=== PATIENT | female | born 1935 | race Caucasian/White ===

== ENCOUNTER → 2016-07-28 | Outpatient (CLI) | payer MEDICARE ==
[~2016-07-28] MED LIST: AMIO200T42 PO; APIX5TAB PO; CARV-39 PO; DIGO125T PO; FURO-93 PO; HYDR-3343 PO; INSU100V8 SQ; LISI-170 PO; METF10002 PO; POTA20TA89 PO; ROSU20TA PO; SITA100T PO
== END | disposition home or self-care (01) ==
LOC: CFH 13:30
PROVIDERS: ATTEND Internal Medicine Cardiovascular Disease
DX: I50.32 Chronic diastolic (congestive) heart failure (principal); I25.10 Atherosclerotic heart disease of native coronary artery without angina pectoris; I51.7 Cardiomegaly; Z79.899 Other long term (current) drug therapy
CPT/HCPCS: 71020

== ENCOUNTER → 2017-06-19 | Outpatient (CLI) | payer MEDICARE | END | disposition home or self-care (01) | LOC: CFH 16:37 | PROVIDERS: ATTEND Internal Medicine Cardiovascular Disease | DX: S82.292A Other fracture of shaft of left tibia, initial encounter for closed fracture (principal); M17.12 Unilateral primary osteoarthritis, left knee; I51.7 Cardiomegaly; I48.1 Persistent atrial fibrillation; R53.1 Weakness; R60.9 Edema, unspecified; X58.XXXA Exposure to other specified factors, initial encounter; Y93.89 Activity, other specified; Y92.89 Other specified places as the place of occurrence of the external cause; Y99.8 Other external cause status | CPT/HCPCS: 71046 ==

== ENCOUNTER → 2017-08-02 | Outpatient (CLI) | payer MEDICARE | END | disposition home or self-care (01) | LOC: CFH 14:19 | PROVIDERS: ATTEND Internal Medicine Cardiovascular Disease | DX: I08.2 Rheumatic disorders of both aortic and tricuspid valves (principal); I11.0 Hypertensive heart disease with heart failure; I50.32 Chronic diastolic (congestive) heart failure; E11.9 Type 2 diabetes mellitus without complications; Z95.5 Presence of coronary angioplasty implant and graft | CPT/HCPCS: 93306 ==

== ENCOUNTER 2018-01-05 11:29 | Emergency (ER) | payer MEDICARE ==
[~2018-01-05] VITALS: Ht 160 cm; Wt 95.0 kg
[2018-01-05] MEDS ORDERED: METF500T17 PO (11:54)
[2018-01-05] MEDS ORDERED: SPIR1TAB PO (11:54)
[2018-01-05 12:10] LABS: BASOPHILS # (AUTO) 0.07 x10^3/uL (0-0.1); BASOPHILS % (AUTO) 1 % (0-1); EOSINOPHILS # (AUTO) 0.27 x10^3/uL (0-0.4); EOSINOPHILS % (AUTO) 3 % (1-7); LYMPHOCYTES # (AUTO) 2.23 x10^3/uL (1-3.4); LYMPHOCYTES % (AUTO) 28 % (22-44); MD NO; MEAN CORPUSCULAR HEMOGLOBIN 29.9 pg (27.0-34.8); MEAN CORPUSCULAR HGB CONC 33.1 g/dL (32.4-35.8); MEAN CORPUSCULAR VOLUME 90.4 fL (80-100); MEAN PLATELET VOLUME 7.9 fL (7.4-10.4); MONOCYTES # (AUTO) 0.52 x10^3/uL (0.2-0.8); MONOCYTES % (AUTO) 6 % (2-9); NEUTROPHILS # (AUTO) 5.01 x10^3/uL (1.8-6.8); NEUTROPHILS % (AUTO) 62 % (42-75); PLATELET COUNT 310 x10^3/uL (130-400); RED BLOOD COUNT 4.48 x10^6/uL (3.82-5.3); RED CELL DISTRIBUTION WIDTH 13.9 % (9.6-15.2)
[2018-01-05] MEDS ORDERED: ONDANSETRON 2MG/ML, 2ML ONE (12:15)
[2018-01-05 12:24] LABS: ALBUMIN 3.7 g/dL (3.4-5.0); ANION GAP 9 mmol/L (5-15); CHLORIDE 105 mmol/L (98-107); CREATININE 1.51 mg/dL (0.55-1.02)
[2018-01-05] MEDS ORDERED: ONDANSETRON ODT 4 MG PO ONE (12:30)
[2018-01-05 12:40] LABS: MICROSCOPIC AUTO
[2018-01-05 12:41] LABS: CULTURE INDICATED? NO
[2018-01-05 14:05] VITALS: BP 188/84
== END 2018-01-05 15:39 | disposition home or self-care (01) ==
LOC: ED 12:44
DX: I10 Essential (primary) hypertension (principal)
CPT/HCPCS: 36415; 80048; 81001; 82040; 85025; 93005; 99285; Q0162

== ENCOUNTER 2018-02-27 12:40 | Inpatient (IN) | payer MEDICARE ==
[~2018-02-27] VITALS: Ht 160 cm; Wt 101.8 kg
[~2018-02-27 12:40] MED LIST changes: +METF500T17 PO; +SPIR1TAB PO
--- NOTE | 2018-02-27 12:42 | NUR ---
PATIENT ARRIVES FROM HOME AFTER A GLF AT HOME THIS PAST MONDAY THAT RESULTED IN PAIN TO LEFT HIP AND NON WEIGHT BEARING SINCE. IT IS NOT ROTATED NOR SHORTENED IN APPEARANCE. SHE HAD DIFFICULTY AMBULATING PRIOR TO FALL AND SINCE THE MOBILITY HAS BEEN WORSE. GOWNED, ON MONITOR. SHE IS AOX4. DIDN'T HAVE ANY HEAD INJURY.
[2018-02-27] MEDS ORDERED: SODIUM CHLORIDE FLUSH 10ML SYR IVF ONE ×2 (13:00→15:00)
[2018-02-27 13:16] LABS: MEAN CORPUSCULAR HEMOGLOBIN 29.4 pg (27.0-34.8); MEAN CORPUSCULAR HGB CONC 32.7 g/dL (32.4-35.8); MEAN CORPUSCULAR VOLUME 89.9 fL (80-100); MEAN PLATELET VOLUME 8.3 fL (7.4-10.4); PLATELET COUNT 376 x10^3/uL (130-400); RED BLOOD COUNT 4.43 x10^6/uL (3.82-5.3)
[2018-02-27 13:26] LABS: INTERNATIONAL NORMALIZED RATIO 1.05 (0.93-1.1); PROTHROMBIN TIME 11.1 Seconds (9.6-11.5)
[2018-02-27 13:29] LABS: ALBUMIN 3.4 g/dL (3.4-5.0); ANION GAP 10 mmol/L (5-15); CALCIUM 8.7 mg/dL (8.5-10.1); CHLORIDE 107 mmol/L (98-107); CREATININE 1.45 mg/dL (0.55-1.02)
[2018-02-27 13:34] LABS: BASOPHILS # (AUTO) 0.04 x10^3/uL (0-0.1); BASOPHILS % (AUTO) 0 % (0-1); EOSINOPHILS # (AUTO) 0.02 x10^3/uL (0-0.4); EOSINOPHILS % (AUTO) 0 % (1-7); LYMPHOCYTES # (AUTO) 0.99 x10^3/uL (1-3.4); LYMPHOCYTES % (AUTO) 7 % (22-44); MD SCAN; MONOCYTES # (AUTO) 0.36 x10^3/uL (0.2-0.8); MONOCYTES % (AUTO) 3 % (2-9); NEUTROPHILS % (AUTO) 90 % (42-75)
--- NOTE | 2018-02-27 13:56 | NUR ---
PATIENT LEFT FOR RADIOLOGY. DAUGHTER AT BESIDE STATES HE INJURED (TIB BROKEN) ONE YEAR AGO KNEE LEFT SIDE MAKING MOBILITY WORSE. REPORT TO LEONEL FOR LUNCH BREAK
--- NOTE | 2018-02-27 14:51 | NUR ---
PATIENT GETTING XRAY AND EKG. AWAITING ADMISSION.
--- NOTE | 2018-02-27 15:09 | NUR ---
patient eating food, and drinking water, no complications.
--- NOTE | 2018-02-27 15:10 | NUR ---
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
[2018-02-27] MEDS ORDERED: SODIUM CHLORIDE 0.9% 1,000 ML IV SCH (15:30)
[2018-02-27] MEDS ORDERED: DOCUSATE 100 MG CAPSULE PO PRN (15:30)
[2018-02-27] MEDS ORDERED: DEXTROSE 50%, 50ML SYRINGE IVPush PRN (15:30)
[2018-02-27] MEDS ORDERED: LABETALOL 5MG/ML, 20ML IVPush PRN (15:30)
[2018-02-27] MEDS ORDERED: ENALAPRILAT 1.25 MG/ML, 2ML IVPush PRN (15:30)
[2018-02-27] MEDS ORDERED: GLUCAGON 1 MG IM PRN (15:30)
[2018-02-27] MEDS ORDERED: BISACODYL 10 MG SUPP PR PRN (15:30)
[2018-02-27] MEDS ORDERED: POLYETHYLENE GLYCOL 17 GM PACKET PO PRN (15:30)
[2018-02-27] MEDS: ACETAMINOPHEN 500 MG TABLET PO SCH ×2 (15:30→23:27)
[2018-02-27] MEDS ORDERED: ONDANSETRON ODT 4 MG PO PRN (15:30)
[2018-02-27] MEDS ORDERED: DEXTROSE 4 GM TAB.CHEW PO PRN (15:30)
[2018-02-27] MEDS ORDERED: KETOROLAC 30 MG/1 ML IV PRN (15:30)
[2018-02-27] MEDS ORDERED: ONDANSETRON 2MG/ML, 2ML IVPush PRN (15:30)
--- NOTE | 2018-02-27 15:38 | NUR ---
PATIENT XRAY OBTAINED. PATIENT CHANGED OF STOOL, LOOSE BROWN. CHANGED DIAPER AND OBTAINED STRAIGHT CATH
--- NOTE | 2018-02-27 15:45 | NUR ---
STRAIGHT CATH PATIENT. URINE THICK, SEDIMENTARY, DARK AND TURBULENT. PATIENT BUTTOCKS RED/PINK BLANCHABLE. CHANGED ALL LINENS AND DIAPER. THICK CREAMY BROWN STOOL
[2018-02-27] MEDS: GABAPENTIN 100 MG CAPSULE PO SCH ×2 (16:00→23:26)
[2018-02-27] MEDS ORDERED: ACETAMINOPHEN 325 MG TABLET ONE (16:00)
--- NOTE | 2018-02-27 16:19 | NUR ---
patient awaiting room assignement. awaiting admission
[2018-02-27 16:27] LABS: MICROSCOPIC INDICATED
[2018-02-27 16:28] LABS: CULTURE INDICATED? YES
--- NOTE | 2018-02-27 16:32 | NUR ---
patient turned and tried to locate pillows. patient is hungry will order diet tray. patient family here and they have multiple patient requests that I fullfilled including a better bed (bed ordered), more pillows, pain meds (gave tylenol) and trying to get eta on admit.
[2018-02-27] MEDS: INSULIN LISPRO 100 UNITS/ML, PEN SQ-INSULIN SCH ×2 (17:00→21:00)
--- NOTE | 2018-02-27 17:30 | NUR ---
CALLED DANIE KESSLER FOR ORDER FOR ABX FOR UA. RECEIVED AND GIVEN.
--- NOTE | 2018-02-27 17:31 | NUR ---
PATIENT IS IN BED AWAITING ROOM FOR ADMISSION. GAVE HER TRAY BUT SHE DIDN'T EAT IT. PATIENT MOVED IN HOSPITAL BED. PATIENT IV REINFORCED. PATIENT CALM AND AND IN BED. SHE IS STILL HAVING PAIN IN LEFT HIP IN SPITE OF TYLENOL.
[2018-02-27] MEDS: SODIUM CHLORIDE FLUSH 10ML SYR IVF SCH (17:33)
--- NOTE | 2018-02-27 17:43 | NUR ---
called clive DIRECTOR OF CREATIVE SERVICES for review of ua. ordered ceftriaxone abx now. patient family is multiple frequent requests. turned patient. got patient a blanket. patient on monitor. ordered lidocaine from pharmacy. got diet trays x2
[2018-02-27] MEDS ORDERED: CEFTRIAXONE PMX 1GM/50ML 50 ML ONE (17:51)
[2018-02-27] MEDS ORDERED: hydrALAzine 20 MG/ML, 1ML ONE (17:51)
[2018-02-27] MEDS: hydrALAzine 20 MG/ML, 1ML IVPush PRN (17:55)
[2018-02-27] MEDS ORDERED: LIDODERM 5% PATCH TD ONE (18:10)
[2018-02-27] MEDS: LIDODERM 5% PATCH TD SCH (18:12)
[2018-02-27] MEDS: CEFTRIAXONE PMX 1GM/50ML 50 ML IV SCH ×2 (18:12→19:07)
--- NOTE | 2018-02-27 18:42 | NUR ---
PATIENT FSBS WAS 150 WHICH REQUIRES NO COVERAGE INSULIN AT THIS TIME.
--- NOTE | 2018-02-27 18:57 | NUR ---
PATIENT RECENTLY TRENDED DOWN WITH BLOOD PRESSURE, AND GOT COOL AND PALE. ALERTED MD AND CHAS COSTA, AND GOT ORDERS FOR AN INTIATED SEPSIS PROTOCOL AND NS BOLUS ORDERED. SHE HAS SON AT BEDSIDE. PATIENT IS ON MONITOR. GETTING FLUIDS. REPORT GIVEN TO RYNE LEDBETTER
--- NOTE | 2018-02-27 19:01 | NUR ---
PATIENT SEPSIS WORKUP BEGAN AND BEING DRAWN NOW
--- NOTE | 2018-02-27 19:31 | NUR ---
REPORT FROM MACIEL MICHELE. BP IMPROVING. PTS HAD EPISODE OF INCONTINENCE AND PT CLEANED AND LINENS CHANGED. PT HAS NO OTHER NEEDS AT THIS TIME. CALL LIGHT IN REACH
--- NOTE | 2018-02-27 19:41 | NUR ---
Note melly in EDM - 02/27/18 at [address] RN. PT GIVEN DINNER TRAY AND JUICE. PT HAS NO OTHER NNEDS AT THIS TIME. CALL LIGHT IN REACH
--- NOTE | 2018-02-27 20:13 | NUR ---
pt sleeping in nad. vss. call light in reach
[2018-02-27 21:44] VITALS: BP 163/79
[2018-02-27 23:10] VITALS: BP 148/76
[2018-02-27] MEDS: APIXABAN 2.5 MG TABLET PO SCH (23:26)
[2018-02-27] MEDS: AMIODARONE 200 MG TABLET PO SCH (23:27)
[2018-02-27 23:40] VITALS: BP 163/79
[2018-02-28 01:24] VITALS: BP 153/81
[2018-02-28 03:30] LABS: MICROSCOPIC INDICATED
[2018-02-28 03:31] LABS: CULTURE INDICATED? YES
[2018-02-28 04:52] LABS: BASOPHILS # (AUTO) 0.15 x10^3/uL (0-0.1); BASOPHILS % (AUTO) 1 % (0-1); EOSINOPHILS # (AUTO) 0.07 x10^3/uL (0-0.4); EOSINOPHILS % (AUTO) 1 % (1-7); LYMPHOCYTES # (AUTO) 1.99 x10^3/uL (1-3.4); LYMPHOCYTES % (AUTO) 19 % (22-44); MD NO; MEAN CORPUSCULAR HEMOGLOBIN 30.5 pg (27.0-34.8); MEAN CORPUSCULAR HGB CONC 33.6 g/dL (32.4-35.8); MEAN CORPUSCULAR VOLUME 90.9 fL (80-100); MEAN PLATELET VOLUME 8.5 fL (7.4-10.4); MONOCYTES # (AUTO) 0.76 x10^3/uL (0.2-0.8); MONOCYTES % (AUTO) 7 % (2-9); NEUTROPHILS % (AUTO) 72 % (42-75); PLATELET COUNT 324 x10^3/uL (130-400); RED BLOOD COUNT 3.71 x10^6/uL (3.82-5.3); RED CELL DISTRIBUTION WIDTH 14.8 % (9.6-15.2)
[2018-02-28 05:03] LABS: ANION GAP 8 mmol/L (5-15); CALCIUM 8.3 mg/dL (8.5-10.1); CHLORIDE 112 mmol/L (98-107)
[2018-02-28 05:04] LABS: CREATININE 1.44 mg/dL (0.55-1.02)
[2018-02-28] MEDS: ACETAMINOPHEN 500 MG TABLET PO SCH ×3 (05:49→17:27)
[2018-02-28] MEDS: GABAPENTIN 100 MG CAPSULE PO SCH ×4 (05:49→20:56)
[2018-02-28 07:16] VITALS: BP 136/72
[2018-02-28] MEDS: SODIUM CHLORIDE FLUSH 10ML SYR IVF SCH ×2 (09:00→20:57)
[2018-02-28] MEDS: LINAGLIPTIN 5 MG TAB PO SCH (09:43)
[2018-02-28] MEDS: APIXABAN 2.5 MG TABLET PO SCH ×2 (09:44→20:56)
[2018-02-28] MEDS: AMIODARONE 200 MG TABLET PO SCH ×2 (09:44→20:57)
[2018-02-28] MEDS: INSULIN LISPRO 100 UNITS/ML, PEN SQ-INSULIN SCH ×4 (09:45→21:00)
[2018-02-28 12:30] VITALS: BP 137/76
[2018-02-28] MEDS: LIDODERM 5% PATCH TD SCH (14:26)
[2018-02-28] MEDS ORDERED: PHARMACY MAY ADJ FOR RENAL FX MC PRN (15:30)
[2018-02-28] MEDS ORDERED: MAGNESIUM SULFATE PMX 2GM/50ML 50 ML IV ONE (15:30)
[2018-02-28] MEDS ORDERED: SODIUM CHLORIDE 0.45% 1,000 ML IV SCH (16:00)
[2018-02-28] MEDS: CEFTRIAXONE PMX 1GM/50ML 50 ML IV SCH (17:27)
[2018-02-28 18:55] VITALS: BP 123/74
[2018-03-01 01:16] VITALS: BP 159/74
[2018-03-01] MEDS: ACETAMINOPHEN 500 MG TABLET PO SCH ×4 (01:23→19:37)
[2018-03-01 05:15] LABS: BASOPHILS % (AUTO) 1 % (0-1); EOSINOPHILS # (AUTO) 0.24 x10^3/uL (0-0.4); EOSINOPHILS % (AUTO) 2 % (1-7); LYMPHOCYTES # (AUTO) 2.37 x10^3/uL (1-3.4); LYMPHOCYTES % (AUTO) 23 % (22-44); MD NO; MEAN CORPUSCULAR HEMOGLOBIN 30.6 pg (27.0-34.8); MEAN CORPUSCULAR HGB CONC 33.5 g/dL (32.4-35.8); MEAN CORPUSCULAR VOLUME 91.4 fL (80-100); MEAN PLATELET VOLUME 8.4 fL (7.4-10.4); MONOCYTES # (AUTO) 0.77 x10^3/uL (0.2-0.8); MONOCYTES % (AUTO) 7 % (2-9); NEUTROPHILS # (AUTO) 7.04 x10^3/uL (1.8-6.8); NEUTROPHILS % (AUTO) 67 % (42-75); PLATELET COUNT 304 x10^3/uL (130-400); RED BLOOD COUNT 3.29 x10^6/uL (3.82-5.3); RED CELL DISTRIBUTION WIDTH 15.1 % (9.6-15.2)
[2018-03-01 06:21] LABS: CHLORIDE 110 mmol/L (98-107)
[2018-03-01] MEDS: GABAPENTIN 100 MG CAPSULE PO SCH ×4 (06:23→21:08)
[2018-03-01 07:00] LABS: ALANINE AMINOTRANSFERASE 13 U/L (12-78); ALBUMIN 2.6 g/dL (3.4-5.0); ALKALINE PHOSPHATASE 64 U/L (45-117); ANION GAP 9 mmol/L (5-15); BILIRUBIN,TOTAL 0.4 mg/dL (0.2-1.0); CREATININE 1.64 mg/dL (0.55-1.02)
[2018-03-01] MEDS: INSULIN LISPRO 100 UNITS/ML, PEN SQ-INSULIN SCH ×4 (07:00→21:28)
[2018-03-01 07:17] VITALS: BP 168/76
[2018-03-01] MEDS: SODIUM CHLORIDE FLUSH 10ML SYR IVF SCH ×2 (09:00→21:00)
[2018-03-01] MEDS: AMLODIPINE 5 MG TABLET PO SCH (10:19)
[2018-03-01] MEDS: AMIODARONE 200 MG TABLET PO SCH ×2 (10:19→21:07)
[2018-03-01] MEDS: LINAGLIPTIN 5 MG TAB PO SCH (10:20)
[2018-03-01] MEDS: APIXABAN 2.5 MG TABLET PO SCH ×2 (10:20→21:08)
[2018-03-01 15:06] VITALS: BP 175/79
[2018-03-01] MEDS: CEFTRIAXONE PMX 1GM/50ML 50 ML IV SCH (17:00)
[2018-03-01 19:01] VITALS: BP 150/84
[2018-03-01] MEDS: LIDODERM 5% PATCH TD SCH (19:41)
[2018-03-02] VITALS (10 sets, daily range): BP systolic 119–198; BP diastolic 69–95
[2018-03-02] MEDS: hydrALAzine 20 MG/ML, 1ML IVPush PRN ×2 (01:03→19:59)
[2018-03-02] MEDS: METHOCARBAMOL 500 MG TABLET PO PRN ×2 (02:19→13:53)
[2018-03-02] MEDS: ACETAMINOPHEN 500 MG TABLET PO SCH ×4 (02:19→19:58)
[2018-03-02 05:22] LABS: BASOPHILS # (AUTO) 0.05 x10^3/uL (0-0.1); BASOPHILS % (AUTO) 1 % (0-1); EOSINOPHILS # (AUTO) 0.41 x10^3/uL (0-0.4); EOSINOPHILS % (AUTO) 4 % (1-7); LYMPHOCYTES # (AUTO) 2.39 x10^3/uL (1-3.4); LYMPHOCYTES % (AUTO) 26 % (22-44); MD NO; MEAN CORPUSCULAR HEMOGLOBIN 30.4 pg (27.0-34.8); MEAN CORPUSCULAR VOLUME 92.1 fL (80-100); MEAN PLATELET VOLUME 8.6 fL (7.4-10.4); MONOCYTES % (AUTO) 8 % (2-9); NEUTROPHILS # (AUTO) 5.78 x10^3/uL (1.8-6.8); NEUTROPHILS % (AUTO) 62 % (42-75); PLATELET COUNT 311 x10^3/uL (130-400); RED CELL DISTRIBUTION WIDTH 14.7 % (9.6-15.2)
[2018-03-02] MEDS: GABAPENTIN 100 MG CAPSULE PO SCH ×4 (05:23→19:58)
[2018-03-02 05:33] LABS: ANION GAP 9 mmol/L (5-15); CALCIUM 8.1 mg/dL (8.5-10.1); CHLORIDE 108 mmol/L (98-107)
[2018-03-02] MEDS: INSULIN LISPRO 100 UNITS/ML, PEN SQ-INSULIN SCH ×4 (07:00→20:23)
[2018-03-02] MEDS: APIXABAN 2.5 MG TABLET PO SCH ×2 (08:17→19:58)
[2018-03-02] MEDS: LINAGLIPTIN 5 MG TAB PO SCH (08:18)
[2018-03-02] MEDS: AMLODIPINE 5 MG TABLET PO SCH (08:18)
[2018-03-02] MEDS: metFORMIN 500 MG TABLET PO SCH ×2 (08:18→17:20)
[2018-03-02] MEDS: AMIODARONE 200 MG TABLET PO SCH ×2 (08:19→19:58)
[2018-03-02] MEDS: SODIUM CHLORIDE FLUSH 10ML SYR IVF SCH ×2 (08:20→20:04)
[2018-03-02] MEDS ORDERED: FUROSEMIDE 20 MG TABLET PO SCH (09:00)
[2018-03-02] MEDS ORDERED: LIDO700A20 TD ×2 (12:48→16:53)
[2018-03-02] MEDS ORDERED: METH500T7 PO ×2 (12:48→16:53)
[2018-03-02] MEDS ORDERED: GABA-826 PO (12:48)
[2018-03-02] MEDS ORDERED: CEFD300C37 PO ×2 (12:48→16:53)
[2018-03-02] MEDS ORDERED: AMLO-150 PO ×2 (12:48→16:53)
[2018-03-02] MEDS ORDERED: INSU100I11 SQ-INSULIN (12:48)
[2018-03-02] MEDS ORDERED: ACET500T71 PO ×2 (12:48→16:53)
[2018-03-02] MEDS ORDERED: APIX2.5T PO (12:48)
[2018-03-02] MEDS: CEFDINIR 300 MG CAPSULE PO SCH ×2 (13:52→19:58)
[2018-03-02] MEDS: LIDODERM 5% PATCH TD SCH (19:58)
== END 2018-03-02 23:10 | disposition home health service (06) | DRG 871 ==
LOC: ED 12:50 → INTOOBSV 14:40 → UNDOADMOB 14:40 → EDIP 14:40 → OBSVTOIN 15:30 → EDIP 15:30 → 3NE 21:41
PROVIDERS: ADMIT Hospitalist; ATTEND Hospitalist
PROC: 0T9B70Z Drainage of Bladder with Drainage Device, Via Natural or Artificial Opening (ICD-10-PCS; principal; 2018-02-27)
DX: A41.9 Sepsis, unspecified organism (principal); R53.2 Functional quadriplegia; N17.9 Acute kidney failure, unspecified; N39.0 Urinary tract infection, site not specified; I50.32 Chronic diastolic (congestive) heart failure; B96.1 Klebsiella pneumoniae [K. pneumoniae] as the cause of diseases classified elsewhere; E11.40 Type 2 diabetes mellitus with diabetic neuropathy, unspecified; E11.65 Type 2 diabetes mellitus with hyperglycemia; E66.01 Morbid (severe) obesity due to excess calories; Z68.39 Body mass index [BMI] 39.0-39.9, adult; Z88.8 Allergy status to other drugs, medicaments and biological substances; E78.00 Pure hypercholesterolemia, unspecified; E78.5 Hyperlipidemia, unspecified; E83.42 Hypomagnesemia; E86.0 Dehydration; I11.0 Hypertensive heart disease with heart failure; I27.20 Pulmonary hypertension, unspecified; I48.91 Unspecified atrial fibrillation; I49.3 Ventricular premature depolarization; M19.90 Unspecified osteoarthritis, unspecified site; W18.39XA Other fall on same level, initial encounter; Y93.89 Activity, other specified; Y92.89 Other specified places as the place of occurrence of the external cause; Y99.8 Other external cause status; Z66 Do not resuscitate; Z96.651 Presence of right artificial knee joint; Z99.3 Dependence on wheelchair; S80.02XA Contusion of left knee, initial encounter
CPT/HCPCS: 36415; 71045; 80048; 80053; 81001; 82040; 82533; 82962; 83605; 83735; 84100; 84145; 84550; 85025; 85610; 86850; 86900; 87040; 87077; 87086; 87186; 93005; 96361; 96374; 99285; G0378; J0696; J0360; J1815; J3475; J7030